=== PATIENT | female | born 1970 | race Caucasian/White ===

== ENCOUNTER 2017-08-02 12:35 | Emergency (ER) | payer OTHER, MEDICARE ==
[~2017-08-02] VITALS: Ht 144.7 cm; Wt 58.5 kg
[~2017-08-02 12:35] MED LIST: ANAPROX DS550 MG PO; AUGMENTIN 875875 MG PO; BENZTROPINE MESY1 MG PO; BENZTROPINE1 MG PO; CATAFLAM50 MG PO; CIPRO XR500 MG PO; CIPROFLOXACIN500 MG PO; COGENTIN0.5 MG PO; DICLOFENAC POTA50 MG PO; DOC-Q-LACE100 MG PO; ESKALITH300 MG PO; FLUPHENAZINE HCL5 MG PO; KLOR-CON 1010 MEQ PO; LITHIUM CARBON300 M1 PO; LITHIUM CARBON300 MG PO; LITHIUM CARBON450 MG PO; LITHOBID300 M1 PO; PERCOCET 325 MG1 TA2 PO; VICODIN 5/500 505 MG PO; ZOFRAN4 MG PO; [UNRECOGNIZED DRUG - OTHER] PO
== END 2017-08-02 12:59 | disposition home or self-care (01) ==
LOC: ED 12:35
DX: Z04.1 Encounter for examination and observation following transport accident (principal); Z88.8 Allergy status to other drugs, medicaments and biological substances; Z79.899 Other long term (current) drug therapy; Z90.710 Acquired absence of both cervix and uterus; V49.9XXA Car occupant (driver) (passenger) injured in unspecified traffic accident, initial encounter; Y93.89 Activity, other specified; Y92.89 Other specified places as the place of occurrence of the external cause; Y99.8 Other external cause status